=== PATIENT | female | born 1990 | race African-American/Black ===

== ENCOUNTER 2021-02-21 16:44 | Emergency (ER) | payer MEDICAID ==
[~2021-02-21] VITALS: Ht 167.6 cm; Wt 97.0 kg
[2021-02-21 17:35] VITALS: BP 135/83
[2021-02-21] MEDS ORDERED: VALA10008 PO (18:18)
--- NOTE | 2021-02-21 18:19 | PHYS DOC ---
Past Medical History Past Medical History: Depression Past Surgical History: Other Additional Past Surgical Histo: L knee surgery Smoking Status: Current Some Day Smoker Alcohol Use: None Drug Use: None General Adult EDM: Chief Complaint: VAGINAL PROBLEM HPI: HPI: Patient is a 30 year old female who presents with had unprotected sex a couple weeks ago and then on February 18 found a small open sore on her right lower inner labia. She states it did not hurt at first. She states she is been trying all kinds of [id number] creams and ointments. She states is just gotten bigger and is now more painful. She states she did put hydrogen peroxide on it and it burned very badly. Patient states that she has no history of any sexually-transmitted diseases or herpes. She is concerned that it is herpes. She rates her pain at a 6 out of 10. Review of Systems: Review of Systems: Constitutional: Denies fever or chills. [] Eyes: Denies change in visual acuity. [] HENT: Denies nasal congestion or sore throat. [] Respiratory: Denies cough or shortness of breath. [] Cardiovascular: Denies chest pain or edema. [] GI: Denies abdominal pain, nausea, vomiting, bloody stools or diarrhea. [] : Denies dysuria. + Vaginal pain [] Musculoskeletal: Denies back pain or joint pain. [] Integument: Denies rash. + Vaginal sore [] Neurologic: Denies headache, focal weakness or sensory changes. [] Endocrine: Denies polyuria or polydipsia. [] Lymphatic: Denies swollen glands. [] Psychiatric: Denies depression or anxiety. [] Heart Score: C/O Chest Pain: No Risk Factors: Risk Factors: DM, Current or recent (<one month) smoker, HTN, HLP, family history of CAD, obesity. Risk Scores: Score 0 - 3: 2.5% MACE over next 6 weeks - Discharge Home Score 4 - 6: 20.3% MACE over next 6 weeks - Admit for Clinical Observation Score 7 - 10: 72.7% MACE over next 6 weeks - Early Invasive Strategies Allergies: Allergies: Allergies Coded Allergies Type Severity Reaction Last Updated Verified No Known Drug Allergies 09/20/13 No Physical Exam: PE: Constitutional: Well developed, well nourished, no acute distress, non-toxic appearance. [] HENT: Normocephalic, atraumatic, bilateral external ears normal, oropharynx moist, no oral exudates, nose normal. [] Eyes: PERRLA, EOMI, conjunctiva normal, no discharge. [] Neck: Normal range of motion, no tenderness, supple, no stridor. [] Cardiovascular:Heart rate regular rhythm, no murmur [] Lungs & Thorax: Bilateral breath sounds clear to auscultation [] Abdomen: Bowel sounds normal, soft, no tenderness, no masses, no pulsatile masses. [] Skin: Warm, dry, no erythema, no rash. Open vaginal sore on the inner right labia [] Back: No tenderness, no CVA tenderness. [] Extremities: No tenderness, no cyanosis, no clubbing, ROM intact, no edema. [] Neurologic: Alert and oriented X 3, normal motor function, normal sensory function, no focal deficits noted. [] Psychologic: Affect normal, judgement normal, mood normal. [] Current Patient Data: Vital Signs: Vital Signs Date Time Temp Pulse Resp B/P (MAP) Pulse Ox O2 Delivery O2 Flow Rate FiO2 02/21/21 17:35 98.1 124 18 135/83 (100) 95 Room Air 98.1 EKG: EKG: [] Radiology/Procedures: Radiology/Procedures: [] Course & Med Decision Making: Course & Med Decision Making Pertinent Labs and Imaging studies reviewed. (See chart for details) See HPI. Alert and oriented x4. Ambulatory with a steady gait. Speaks in full clear sentences. Denies any urinary symptoms or fevers. Denies any abdominal pain or abnormal vaginal discharge. Patient will be swabbed for herpes and will be sent to the lab. I will go ahead and start the patient on acyclovir. I will refer her to the construction carpenters helper. [] Dragon Disclaimer: Dragon Disclaimer: This electronic medical record was generated, in whole or in part, using a voice recognition dictation system. Departure Departure Impression: Primary Impression: Vaginal sore Disposition: HOME / SELF CARE / HOMELESS Condition: STABLE Referrals: NO PCP (PCP) LIBRA GOULD MD, DONALD G Jr MD Patient Instructions: Medical Screening Exam Additional Instructions: Follow-up with a construction carpenters helper as soon as possible. Take medication as prescribed and with food. Scripts Valacyclovir Hcl (VALACYCLOVIR) 1,000 Mg Tablet 1 TAB PO BID for 7 Days, #14 TAB 3 Refills Prov: SOFIYA ROSARIO APRN 02/21/21 SOFIYA ROSARIO APRN Feb 21, 2021 18:19
[2021-02-25 17:08] LABS: HERPES SIMPLEX TYPE 1 Negative (Negative); HERPES SIMPLEX TYPE 2 Positive (Negative)
== END 2021-02-21 18:25 | disposition home or self-care (01) ==
LOC: ER 16:44
DX: R10.2 Pelvic and perineal pain (principal); F17.200 Nicotine dependence, unspecified, uncomplicated
CPT/HCPCS: 36415; 81025; 87529; 99283